=== PATIENT | male | born 1960 | race Caucasian/White ===

== ENCOUNTER 2017-09-28 22:57 | Emergency (ER) | payer BC ==
--- NOTE | 2017-09-29 00:49 | EDM.PDOC ---
ED HPI GENERAL MEDICAL PROBLEM - General Chief Complaint: Chest Pain Stated Complaint: CHEST PAIN Time Seen by Provider: 09/29/17 00:15 Source of Information: Reports: Patient, Family () History Limitations: Reports: No Limitations - History of Present Illness INITIAL COMMENTS - FREE TEXT/NARRATIVE: The patient states that he had upper abdominal pain on 09/06/2017. He went to the [facility] ED, where he was found to have been suffering from an acute RI. He was transferred to [place], where he received 3 coronary stents. He was started on baby aspirin and Plavix, which he is compliant with. He states that he developed the same upper abdominal pain, a pressure sensation , around 12 noon to 13:00 yesterday, 09/28/2017. The pain waxes and wanes, and is not modifiable. The pain began radiating through to his right scapular hour about 30 minutes after the abdominal pain began, then he developed nausea about one hour after that. He has since had emesis. He feels dyspneic when he is supine, but not when he is upright. He has not had any diaphoresis or sense of impending doom. No recent constipation, diarrhea, or urinary symptoms. No recent fever. States that he has had similar symptoms numerous times in the past, with no diagnosis having been made. Believing that his current symptoms were cardiac in etiology, the patient took 2 nitroglycerin at home, with questionable relief, then was given 3 sprays of nitroglycerin per EMS en route, also without relief. The patient's last oral solid intake was around 13:30 yesterday, 09/28/2017. His last oral liquid intake was around 21:00 last night. The patient's PCP is Dr. Cook, from [facility]. His Avionics System Engineer is Dr. Yanez , from [place]. Left Chest Pain Score (Numeric/FACES): 2 - Related Data Allergies Allergy/AdvReac Type Severity Reaction Status Date / Time epinephrine Allergy Irritabilit Verified 09/28/17 23:09 y Home Meds: Home Meds Aspirin [Children's Aspirin] 1 tab PO DAILY 09/28/17 [History] Carvedilol [Coreg] 6.25 mg PO DAILY 09/28/17 [History] Clopidogrel [Plavix] 75 mg PO DAILY 09/28/17 [History] Furosemide [Lasix] 40 mg PO BID 09/28/17 [History] Liraglutide [Victoza] 0.6 mg SUBCUT DAILY 09/28/17 [History] Lisinopril [Zestril] 5 mg PO BID 09/28/17 [History] Nitroglycerin [Nitrostat] 0.4 mg SL ASDIRECTED PRN MDD 3 09/28/17 [History] Spironolactone [Aldactone] 12.5 mg PO BID 09/28/17 [History] atorvaSTATin [Lipitor] 80 mg PO DAILY 09/28/17 [History] metFORMIN HCl [Glucophage] 1,000 mg PO BID 09/28/17 [History] Past Medical History Cardiovascular History: Reports: Afib (paroxysmal), CAD, High Cholesterol, Hypertension, RI Musculoskeletal History: Reports: Fracture (spine) Psychiatric History: Reports: Depression Endocrine/Metabolic History: Reports: Diabetes, Type II, Obesity/BMI 30+ - Past Surgical History HEENT Surgical History: Reports: Tonsillectomy Cardiovascular Surgical History: Reports: Coronary Artery Stent (x 3, 09/06/2017 , [place]) Social & Family History - Tobacco Use Tobacco Use Within Last Twelve Months: Cigars, Pipe Month/Year Tobacco Last Used: Quit 09/06/2017 - Caffeine Use Caffeine Use: Reports: Coffee - Alcohol Use Alcohol Use History: Yes Alcohol Use Frequency: Rarely - Recreational Drug Use Recreational Drug Use: No - Living Situation & Occupation Living situation: Reports: , with Spouse Occupation: Employed (service parts driver) ED ROS GENERAL - Review of Systems Review Of Systems: ROS reveals no pertinent complaints other than HPI. ED EXAM, GENERAL - Physical Exam Exam: See Below Exam Limited By: No Limitations General Appearance: Alert, WD/WN, Mild Distress (Appears uncomfortable) Eye Exam: Bilateral Eye: Normal Inspection Ears: Normal External Exam, Hearing Grossly Normal Nose: Normal Inspection, No Blood Throat/Mouth: Normal Inspection, Normal Lips, Normal Voice, No Airway Compromise Head: Atraumatic, Normocephalic Neck: Normal Inspection, Full Range of Motion Respiratory/Chest: No Respiratory Distress, Lungs Clear, Normal Breath Sounds, No Accessory Muscle Use Cardiovascular: Normal Peripheral Pulses, Regular Rate, Rhythm, No Gallop, No JVD, No Murmur, No Rub Peripheral Pulses: 4+: Radial (L), Radial (R) GI/Abdominal: Normal Bowel Sounds, Soft, No Organomegaly, No Distention, No Abnormal Bruit, No Mass, Tender (RUQ only. Epps sign positive.), Other (Obese) . No: Guarding, Rebound (Male) Exam: Deferred Rectal (Males) Exam: Deferred Back Exam: Normal Inspection, Full Range of Motion, NT Extremities: Normal Inspection, Normal Range of Motion, No Pedal Edema, Normal Capillary Refill Neurological: Alert, Oriented, Normal Cognition, No Motor/Sensory Deficits Psychiatric: Normal Affect Skin Exam: Warm, Dry, Intact, Normal Color, No Rash EKG INTERPRETATION EKG Date: 09/28/17 Time: 22:57 Rhythm: NSR Rate (Beats/Min): 74 Pegram: Normal P-Wave: Present QRS: Other (Nonspecific intraventricular conduction delay) ST-T: Other (J-point elevation in V1, V2, but no T-wave inversions. No ischemic changes.) QT: Normal Comparison: NA - No Prior EKG Course - Vital Signs Last Recorded V/S: Last Vital Signs Temp 36.9 C 09/28/17 23:01 Pulse 75 09/28/17 23:01 Resp 17 09/28/17 23:01 BP 169/75 H 09/28/17 23:01 Pulse Ox 97 09/28/17 23:01 - Orders/Labs/Meds Orders: Active Orders 24 hr Category Date Time Status EKG Documentation Completion [RC] STAT Care 09/29/17 00:43 Active Abdomen Ltd [US] Stat Exams 09/29/17 01:41 Taken Abdomen Pelvis w Cont [CT] Stat Exams 09/29/17 01:28 Taken Chest 2V [CR] Stat Exams 09/28/17 23:31 Taken Sodium Chloride 0.9% [Normal Saline] 1,000 ml Med 09/29/17 01:30 Active IV ASDIRECTED Sodium Chloride 0.9% [Saline Flush] Med 09/29/17 03:46 Active 10 ml FLUSH ONETIME PRN Medication Orders Sodium Chloride (Normal Saline) 1,000 mls @ 100 mls/hr IV ASDIRECTED MUNIR Last Admin: 09/29/17 01:41 Dose: 100 mls/hr Sodium Chloride (Saline Flush) 10 ml FLUSH ONETIME PRN PRN Reason: IV FLUSH Last Admin: 09/29/17 04:06 Dose: 10 ml Labs: Laboratory Tests 09/28/17 09/28/17 09/28/17 Range/Units 23:05 23:05 23:05 WBC 13.01 H (4.23-9.07) K/mm3 RBC 5.65 (4.63-6.08) M/mm3 Hgb 14.9 (13.7-17.5) gm/L Hct 43.5 (40.1-51.0) % MCV 77.0 L (79.0-92.2) fl MCH 26.4 (25.7-32.2) pg MCHC 34.3 (32.2-35.5) g/dl RDW Std Deviation 42.2 (35.1-43.9) fL Plt Count 152 L (163-337) K/mm3 MPV 10.2 (9.4-12.3) fl Neutrophils % (Manual) 92 H (40-60) % Band Neutrophils % 0 (0-10) % Lymphocytes % (Manual) 6 L (20-40) % Atypical Lymphs % 0 % Monocytes % (Manual) 1 L (2-10) % Eosinophils % (Manual) 1 (0.8-7.0) % Basophils % (Manual) 0 L (0.2-1.2) Platelet Estimate Adequate RBC Morph Comment Normal PT 11.2 (9.5-12.1) SECONDS INR 1.03 APTT 30 (24-31) SECONDS D-Dimer, Quantitative 0.66 H (0.19-0.50) mg/L Sodium 137 (136-145) mEq/L Potassium 4.7 (3.5-5.1) mEq/L Chloride 98 (98-107) mEq/L Carbon Dioxide 30 (21-32) mEq/L Anion Gap 13.7 (5-15) BUN 25 H (7-18) mg/dL Creatinine 1.0 (0.7-1.3) mg/dL Est Cr Clr Drug Dosing 108.02 mL/min Estimated GFR (MDRD) > 60 (>60) mL/min BUN/Creatinine Ratio 25.0 H (14-18) Glucose 247 H (74-106) mg/dL Calcium 9.3 (8.5-10.1) mg/dL Total Bilirubin 0.8 (0.2-1.0) mg/dL AST 19 (15-37) U/L ALT 26 (16-63) U/L Alkaline Phosphatase 156 H (46-116) U/L Troponin I 0.027 (0.00-0.056) ng/mL Total Protein 7.1 (6.4-8.2) g/dl Albumin 3.5 (3.4-5.0) g/dl Globulin 3.6 gm/dL Albumin/Globulin Ratio 1.0 (1-2) Lipase (73-393) U/L 09/28/17 Range/Units 23:05 WBC (4.23-9.07) K/mm3 RBC (4.63-6.08) M/mm3 Hgb (13.7-17.5) gm/L Hct (40.1-51.0) % MCV (79.0-92.2) fl MCH (25.7-32.2) pg MCHC (32.2-35.5) g/dl RDW Std Deviation (35.1-43.9) fL Plt Count (163-337) K/mm3 MPV (9.4-12.3) fl Neutrophils % (Manual) (40-60) % Band Neutrophils % (0-10) % Lymphocytes % (Manual) (20-40) % Atypical Lymphs % % Monocytes % (Manual) (2-10) % Eosinophils % (Manual) (0.8-7.0) % Basophils % (Manual) (0.2-1.2) Platelet Estimate RBC Morph Comment PT (9.5-12.1) SECONDS INR APTT (24-31) SECONDS D-Dimer, Quantitative (0.19-0.50) mg/L Sodium (136-145) mEq/L Potassium (3.5-5.1) mEq/L Chloride (98-107) mEq/L Carbon Dioxide (21-32) mEq/L Anion Gap (5-15) BUN (7-18) mg/dL Creatinine (0.7-1.3) mg/dL Est Cr Clr Drug Dosing mL/min Estimated GFR (MDRD) (>60) mL/min BUN/Creatinine Ratio (14-18) Glucose (74-106) mg/dL Calcium (8.5-10.1) mg/dL Total Bilirubin (0.2-1.0) mg/dL AST (15-37) U/L ALT (16-63) U/L Alkaline Phosphatase (46-116) U/L Troponin I (0.00-0.056) ng/mL Total Protein (6.4-8.2) g/dl Albumin (3.4-5.0) g/dl Globulin gm/dL Albumin/Globulin Ratio (1-2) Lipase 248 (73-393) U/L Meds: Medications Generic Name Dose Route Start Last Admin Trade Name Freq PRN Reason Stop Dose Admin Sodium Chloride 1,000 mls @ 100 mls/hr 09/29/17 01:30 09/29/17 01:41 Normal Saline IV 100 mls/hr ASDIRECTED MUNIR Administration Sodium Chloride 10 ml 09/29/17 03:46 09/29/17 04:06 Saline Flush FLUSH 10 ml ONETIME PRN Administration IV FLUSH Discontinued Medications Generic Name Dose Route Start Last Admin Trade Name Freq PRN Reason Stop Dose Admin Diatrizoate Meglum/Diatrizoate Sod 90 ml 09/29/17 03:46 09/29/17 04:06 Gastrografin 37% PO 09/29/17 03:47 90 ml ONETIME ONE Administration Hydromorphone HCl 1 mg 09/29/17 01:29 09/29/17 01:44 Dilaudid IVPUSH 09/29/17 01:30 1 mg ONETIME STA Administration Ampicillin Sodium/Sulbactam 100 mls @ 200 mls/hr 09/29/17 05:24 09/29/17 05: 42 Sodium 3 gm/ Sodium Chloride IV 09/29/17 05:53 200 mls/hr ONETIME ONE Administration Iopamidol 125 ml 09/29/17 03:46 09/29/17 04:06 Isovue-300 (61%) IVPUSH 09/29/17 03:47 125 ml ONETIME ONE Administration Ondansetron HCl 4 mg 09/29/17 01:30 09/29/17 01:42 Zofran IVPUSH 09/29/17 01:31 4 mg ONETIME ONE Administration - Re-Assessments/Exams Free Text/Narrative Re-Assessment/Exam: 09/29/17 00:47 Two-view chest radiograph appears to be grossly normal. Cardiac silhouette is within normal limits. No pulmonary vascular congestion. No pleural effusions. No focal infiltrate. No pneumothorax. Formal read per the Radiologist pending. 09/29/17 00:47 Concern of possible ventricular tachycardia or torsade de pointes noted on the cardiographer, however, when the rhythm strip was examined, QRS complexes march out within the abnormal peaks and valleys, suggesting that the abnormality is due to motion artifact, not true ventricular tachycardia or torsades. Repeat ECG at 00:43 is identical to the earlier ECG at 22:57, with a normal sinus rhythm at 74 bpm, J-point elevation seen in V1 and V2, but with no T-wave inversions. No ischemic changes. No LAD. No LVH. Nonspecific intraventricular conduction delay. 09/29/17 01:36 Test results reviewed. The patient blood glucose is elevated at 247. His WBC count is elevated at 13.01, but with 0% bandemia, and his d-dimer is slightly elevated at 0.66. His troponin is normal. Based on the patient's history and physical examination, I suspect that the patient may be suffering from gallbladder disease. As it has been about 6 hours since the patient has anything to drink, and 12 hours since he has had anything to eat, I have ordered an ultrasound of the right upper quadrant. I have also ordered a CT scan of the abdomen and pelvis with oral and IV contrast - the patient can start drinking the oral contrast once he has returned from ultrasound. 09/29/17 03:03 Ultrasound of the right upper quadrant is read by [facility] as: Cholelithiasis Distended gallbladder but no evidence for gallbladder wall thickening Normal common bile duct of 7 mm (sic) 09/29/17 04:45 CT of the abdomen and pelvis with oral and IV contrast is read by [facility] as: Distended gallbladder with possible small gallstones. There does appear to be mild pericholecystic inflammation. The findings are consistent with acute cholecystitis (sic) 09/29/17 05:24 Test results discussed with the patient and his . Both the ultrasound and CT scan of the abdomen and pelvis indicates that the patient has acute cholecystitis. I recommended that we discussed the case with the surgeon traffic monitor specialist , to see if the surgeon would agree to a cholecystectomy. The patient agreed. Case then discussed with Dr. Oconnell at 05:15. Because the patient is on Plavix, surgery would be complicated. Alternatively, the patient could receive percutaneous drainage, however, that procedure is not performed at this facility. He therefore recommends that we start the patient on Unasyn and transfer him to [place]. I have ordered Unasyn 3g. 09/29/17 05:58 The patient and his have chosen [facility]. 09/29/17 06:21 Case discussed with [facility] at 05:58. Case then discussed with Dr. Moore, General Surgeon at [facility] at 06: 05. He agrees with the transfer to their facility, but would prefer to be on consult, with the patient admitted to the hospitalist service. Case then discussed with Dr. Castle, Hospitalist at [facility], at 06: 16. He accepts the patient for direct admission to their facility. 09/29/17 06:45 Chest x-ray, ultrasound of the RUQ, and CT of the abdomen and pelvis images have been pushed to [facility]. Departure - Departure Time of Disposition: 06:20 Disposition: DC/Tfer to Acute Hospital 02 Condition: Fair Clinical Impression: Acute cholecystitis, Hyperglycemia due to type 2 diabetes mellitus - Discharge Information - My Orders Last 24 Hours: My Active Orders 09/28/17 23:31 Chest 2V [CR] Stat 09/29/17 00:43 EKG Documentation Completion [RC] STAT 09/29/17 01:28 Abdomen Pelvis w Cont [CT] Stat 09/29/17 01:30 Sodium Chloride 0.9% [Normal Saline] 1,000 ml IV ASDIRECTED 09/29/17 01:41 Abdomen Ltd [US] Stat 09/29/17 03:46 Sodium Chloride 0.9% [Saline Flush] 10 ml FLUSH ONETIME PRN - Assessment/Plan Last 24 Hours: My Active Orders 09/28/17 23:31 Chest 2V [CR] Stat 09/29/17 00:43 EKG Documentation Completion [RC] STAT 09/29/17 01:28 Abdomen Pelvis w Cont [CT] Stat 09/29/17 01:30 Sodium Chloride 0.9% [Normal Saline] 1,000 ml IV ASDIRECTED 09/29/17 01:41 Abdomen Ltd [US] Stat 09/29/17 03:46 Sodium Chloride 0.9% [Saline Flush] 10 ml FLUSH ONETIME PRN
[2017-09-29] MEDS ORDERED: HYDROmorphone 0.5 MG/0.5 ML SYRINGE IVPUSH STA (01:29)
[2017-09-29] MEDS ORDERED: Sodium Chloride 0.9% 1,000 ML IV SCH (01:30)
[2017-09-29] MEDS ORDERED: Ondansetron 4 MG/2 ML SDV IVPUSH ONE (01:30)
[2017-09-29] MEDS ORDERED: Sodium Chloride 0.9% 10 ML Syringe FLUSH PRN (03:46)
[2017-09-29] MEDS ORDERED: Diatrizoate Meglumine/Diatrizoate Sodium 37% 120 ML Bottle PO ONE (03:46)
[2017-09-29] MEDS ORDERED: Iopamidol 612 MG/ML 150 ML Bottle IVPUSH ONE (03:46)
[2017-09-29] MEDS ORDERED: Ampicillin/Sulbactam Na 3 GM in Sodium Chloride 0.9% 100 ML IV ONE (05:24)
--- NOTE | 2017-09-29 14:55 | CT ---
CT abdomen and pelvis Technique: Multiple axial sections were obtained from above the dome of the diaphragm inferiorly through the pubic symphysis. Intravenous and oral contrast was utilized. Comparison: No prior abdominal or pelvic CT exam. Findings: Small left-sided pleural effusion is seen. Diffuse interstitial change noted within both lung bases which by CT exam has mostly the appearance of pulmonary fibrosis. Liver shows no focal abnormality. Spleen is slightly enlarged with length of 14.9 cm. Adrenal glands show no nodule. Pancreas is within normal limits. Two soft tissue findings seen within the gallbladder suspicious for noncalcified gallstones. Aorta shows atherosclerotic change without aneurysmal dilatation. Atherosclerotic change continues into the iliac vessels. No retroperitoneal adenopathy or mesenteric abnormalities are seen. Appendix is seen which appears normal. No pelvic mass or adenopathy is seen. Delayed images show contrast within the bladder. Bone window settings were reviewed which show minimal scattered degenerative change within the spine. Impression: 1. Small left-sided pleural effusion. Interstitial change within both lung bases which by CT exam has mostly appearance of pulmonary fibrosis. 2. Mild splenomegaly. Several possible noncalcified gallstones. 3. Other incidental findings. Diagnostic code #3 Agree with preliminary report issued by [facility] ([facility] preliminary report dictated on 09/29/17, 5:24 AM Central Time)
--- NOTE | 2017-09-29 14:55 | US ---
Limited abdominal ultrasound: Multiple real-time images of the upper right abdomen were obtained. Liver shows no focal abnormality. Gallbladder slightly distended. Intraluminal debris seen within the gallbladder most likely due to combination of sludge and small gallstones. No pericholecystic fluid is seen. Common bile duct measures at the upper limits of normal at 7 mm. Pancreas is incompletely seen. Visualized portions of the pancreas are within normal limits. Right kidney shows no hydronephrosis or mass and has a length of 15.8 cm. Impression: 1. Gallbladder slightly distended with intraluminal debris felt to represent a combination of sludge and gallstones. 2. Common bile duct at 7 mm which is at the upper limits of normal. No pericholecystic fluid is seen. 3. No additional abnormality is seen. Diagnostic code #3 Agree with preliminary report issued by [facility] ([facility] preliminary report dictated on 09/29/17, 4:00 a.m. Central Time)
--- NOTE | 2017-09-29 14:55 | CR ---
Chest: Two views of the chest were obtained. Comparison: No previous study. Increased interstitial changes are seen within both lungs, worse within the left base. Heart is slightly enlarged. Atherosclerotic change is noted within the aortic knob. Bony structures are unremarkable for the patient's age. Impression: 1. Diffuse interstitial change within both lungs. Without old films uncertain how much of this is chronic versus acute representing bronchitis or possibly pulmonary vascular congestion. Diagnostic code #3
== END 2017-09-29 09:05 ==
LOC: JD.ED 22:57
DX: K81.0 Acute cholecystitis (principal); E11.65 Type 2 diabetes mellitus with hyperglycemia; J90 Pleural effusion, not elsewhere classified; I25.2 Old myocardial infarction; I10 Essential (primary) hypertension; E78.00 Pure hypercholesterolemia, unspecified; E66.9 Obesity, unspecified; F32.9 Major depressive disorder, single episode, unspecified; Z87.891 Personal history of nicotine dependence; Z88.8 Allergy status to other drugs, medicaments and biological substances; Z79.82 Long term (current) use of aspirin; Z79.84 Long term (current) use of oral hypoglycemic drugs
CPT/HCPCS: 36415; 71046; 74177; 76705; 80053; 83690; 84484; 85025; 85379; 85610; 85730; 93005; 96361; 96365; 96375; 99285; J0295; J1170; J2405; J7030; J7040; J7050; Q9963; Q9967; 93010

== ENCOUNTER 2021-12-14 12:21 | Emergency (ER) | payer BC ==
[2021-12-14] MEDS ORDERED: Sodium Chloride 0.9% 10 ML Syringe FLUSH PRN ×2 (12:51→12:57)
[2021-12-14] MEDS ORDERED: Iopamidol 612 MG/ML 100 ML Bottle IVPUSH ONE (12:57)
[2021-12-14] MEDS ORDERED: Iopamidol 612 MG/ML 50 ML SDV IVPUSH ONE (12:57)
== END 2021-12-14 15:25 | disposition home or self-care (01) ==
LOC: JD.ED 12:21
DX: K55.1 Chronic vascular disorders of intestine (principal); I48.91 Unspecified atrial fibrillation; I25.10 Atherosclerotic heart disease of native coronary artery without angina pectoris; E78.00 Pure hypercholesterolemia, unspecified; I10 Essential (primary) hypertension; I25.2 Old myocardial infarction; E11.9 Type 2 diabetes mellitus without complications; E66.9 Obesity, unspecified; Z79.82 Long term (current) use of aspirin; Z79.02 Long term (current) use of antithrombotics/antiplatelets; Z88.4 Allergy status to anesthetic agent; Z79.899 Other long term (current) drug therapy; Z79.84 Long term (current) use of oral hypoglycemic drugs; Z68.29 Body mass index [BMI] 29.0-29.9, adult
CPT/HCPCS: 36415; 71045; 74177; 80053; 81003; 83735; 83880; 84484; 85025; 86140; 93005; 99285; J3490; Q9967